=== PATIENT | female | born 1985 | race Caucasian/White ===

== ENCOUNTER 2019-02-12 13:21 | Inpatient (IN) ==
[2019-02-12] MEDS ORDERED: OXYTOCIN 30 UNITS/500 ML BAG IV PRN ×2 (13:42→17:27)
[2019-02-12] MEDS ORDERED: LACTATED RINGER'S 1,000 ML IV PRN ×3 (13:42→16:18)
[2019-02-12] MEDS: LACTATED RINGER'S 1,000 ML IV SCH ×2 (14:08→16:46)
[2019-02-12 14:14] LABS: Hematocrit (blood only) 38.8 % (37-47); Hemoglobin 13.1 g/dL (12.0-16.0); Mean Corpuscular Volume 84.5 fL (80-100); Mean Platelet Volume 10.5 fL (7.4-10.4); Platelet Count 200 K/uL (130-400); RDW Coefficient of Variation 14.1 % (11.5-14.5); RDW Standard Deviation 42.4 fL (36.4-46.3); Red Blood Count 4.59 M/uL (4.2-5.4); White Blood Count 13.16 K/uL (4.8-10.8)
[2019-02-12] MEDS ORDERED: ePHEDrine sulfate 50 MG/ML AMP ONE (14:18)
[2019-02-12] MEDS ORDERED: fentaNYL citrate 100 MCG/2 ML VIAL ONE (14:18)
[2019-02-12] MEDS ORDERED: BUPIVACAINE 0.25% 30 ML VIAL ONE (14:18)
[2019-02-12] MEDS ORDERED: fentaNYL 2MCG/ML ROPIV 1.25MG/ML 100 ML BAG EPI ONE (14:19)
--- NOTE | 2019-02-12 14:19 | History & Physical Report ---
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 No recent bite or scratch by animal Allergies Allergy/AdvReac Type Severity Reaction Status Date / Time amoxicillin Allergy Hives Verified 02/12/19 13:35 Penicillins Allergy Hives Verified 02/12/19 13:36 Patient History Medical History No known health problems [place] teeth removed age 20 Family History Mother Melanoma OB History 05/2017 in [place] [employer] History No h/o STD's , no chlamydia/ GC or HSV Review of Systems All systems reviewed & are unremarkable except as noted in HPI & below Physical Exam Vital Signs (Past 24 Hours): Last Vital Signs Pulse 84 02/12/19 13:31 BP 132/62 02/12/19 13:31 Constitutional: well nourished, + acute distress (with contractions) and well groomed Genitourinary: no vaginal lesions, no adnexal mass normal external appea ang Speculum/Bimanual Exam: normal bimanual exam Manual OB Exam: + cervical dilation (6-7) 6 cm, + cervical effacement 80% and + station (vertex, bulging bag) -1 OB Exam Monitor Tracing: + category I
[2019-02-12 14:20] LABS: Mean Corpuscular Hgb Conc 33.8 g/dL (32-36)
[2019-02-12] MEDS ORDERED: NALBUPHINE HCL INJ 10 MG/ML AMP IV PRN ×2 (15:15→16:18)
[2019-02-12] MEDS ORDERED: NALOXONE HCL 1 MG in SODIUM CHLORIDE 0.9% 1000ML 1,000 ML IV PRN ×2 (15:15→16:18)
[2019-02-12] MEDS ORDERED: ONDANSETRON INJ 2 MG/ML 2 ML VIAL IV PRN ×2 (15:15→16:18)
[2019-02-12] MEDS ORDERED: NALOXONE HCL 0.4 MG/1 ML VIAL/CARP IV PRN ×2 (15:15→16:18)
[2019-02-12] MEDS ORDERED: PROMETHAZINE HCL 6.25 MG in SODIUM CHLORIDE 0.9% 50 ML IV PRN ×2 (15:15→16:18)
[2019-02-12] MEDS ORDERED: DiphenhydrAMINE HCL 50 MG/ML VIAL IV PRN ×2 (15:15→16:18)
[2019-02-12] MEDS ORDERED: ePHEDrine sulfate 50 MG/ML AMP IV PRN ×2 (15:15→16:18)
[2019-02-12] MEDS ORDERED: fentaNYL 2MCG/ML ROPIV 1.25MG/ML 100 ML BAG EPI PRN ×2 (15:15→16:18)
--- NOTE | 2019-02-12 16:12 | Obstetrical Progress Note ---
Date of Service February 12, 2019 Subjective Patient is reevaluated She is comfortable, received epidural for pain FHR categ I Offered her AROM but she likes to wait her to come back Continue to monitor closey Physical Exam Vital Signs (Past 24 Hours): Last Vital Signs Temp 36.8 C 02/12/19 15:06 Pulse 82 02/12/19 15:59 Resp 20 02/12/19 15:59 BP 119/75 02/12/19 15:59 Pulse Ox 100 02/12/19 15:57
--- NOTE | 2019-02-12 16:19 | Anesthesiology Consultation ---
Date of Service February 12, 2019 Assessment & Plan Chart Review Chart Review: Patient NOT seen in Pre Admission Testing and Acceptable Risk for Labor Epidural Consults Requested none ASA ASA2 Proposed Anesthesia Anesthesia Type: Labor Epidural Risk / Benefits Reviewed With: PT / POA / Parent / Guardian, Accepts Plan and Informed Consent Obtained History Height/Weight Height: 5 ft 2 in Weight: 65.317 kg Allergies Allergy/AdvReac Type Severity Reaction Status Date / Time amoxicillin Allergy Hives Verified 02/12/19 13:35 Penicillins Allergy Hives Verified 02/12/19 13:36 Medications Home Medications Medication Instructions Recorded Confirmed Last Taken PNV cmb#95-ferrous fumarate-FA 1 tab PO DAILY 02/12/19 02/12/19 02/11/19 21:00 [] Active Medications Generic Name Dose Route Start Last Admin Trade Name Freq PRN Reason Stop Dose Admin Lactated Ringer's 1,000 mls @ 150 mls/hr 02/12/19 13:45 02/12/19 14:08 Lr IV 02/14/19 13:44 999 mls/hr .[id number] JULIAN Administration Past Medical History Medical History No known health problems [place] teeth removed age 20 Past Family History Family History Mother Melanoma Social History Smoking Status: Never smoker Hx Alcohol Use: No Hx Substance Use: No Physical Exam Vital Signs Last Vital Signs Temp 36.8 C 02/12/19 15:06 Pulse 82 02/12/19 15:59 Resp 20 02/12/19 15:59 BP 119/75 02/12/19 15:59 Pulse Ox 100 02/12/19 15:57 ENMT Mouth: no TMJ abnormality Thyromental Distance: > or= 3.5 Finger Breadths Mallampati Class: II Neck normal visual inspection Respiratory normal respiratory effort Cardiovascular Rate/Rhythm: regular rate and regular rhythm Neurologic moves all extremities Psychiatric Orientation: alert Testing Laboratory Results 02/12/19 13:58
[2019-02-12] MEDS ORDERED: DIPHTHERIA/TETANUS/PERTUSSIS 0.5 ML SYR/VIAL IM ONE (17:27)
[2019-02-12] MEDS ORDERED: HYDROCORTISONE ACETATE 25 MG SUPP PR PRN (17:27)
[2019-02-12] MEDS ORDERED: ACETAMINOPHEN 325 MG TAB PO PRN (17:27)
[2019-02-12] MEDS ORDERED: BENZOCAINE 20% AER SPR 82.5 GM CAN EXT PRN (17:27)
[2019-02-12] MEDS ORDERED: SUPERCREAM 0.870% 15 GM JAR EXT PRN (17:27)
[2019-02-12] MEDS ORDERED: BISACODYL 10 MG SUPP PR PRN (17:27)
--- NOTE | 2019-02-12 17:58 | Anesthesia Procedure Note ---
Date of Service February 12, 2019 Anesthesia Post Epidural Note Vital Signs Vital Signs: Temp Pulse Resp BP Pulse Ox 36.8 C 70 20 138/67 83 L 02/12/19 15:06 02/12/19 17:28 02/12/19 15:59 02/12/19 17:28 02/12/19 17:13 Pain Intensity Bilateral Abdomen: Pain Intensity: 1 Notes Mental Status: alert / awake / arousable Nausea / Vomiting: adequately controlled Pain: adequately controlled Airway Patency, RR, SpO2: stable & adequate BP & HR: stable & adequate Hydration State: stable & adequate Neuraxial Anesthesia: was administered and sensory block is resolving Anesthetic Complications: no major complications apparent and Pt Satisfied with anesthetic care Epidural: Removed without complications
[2019-02-12] MEDS: IBUPROFEN 600 MG TAB PO PRN (20:38)
[2019-02-12] MEDS: DOCUSATE SODIUM 100 MG CAP PO SCH (21:30)
--- NOTE | 2019-02-13 03:38 | Delivery Summary ---
DATE OF OPERATION: 02/12/2019 TIME OF DELIVERY OF BABY: 1716. TIME OF DELIVERY OF PLACENTA: 1722. DETAILS OF DELIVERY: The patient was found to be fully dilated and desired to push. She started pushing with contractions. heart rate had been category I before starting to push. heart rate started having decelerations in between contractions but with a good variability in between and acceleration with scalp stimulation most of the time. After 30 minutes of pushing, heart rate had another deceleration to 80s without recovery. Decision was made to apply a vacuum on the head. The head was at +3 station and bladder was empty and vagina had enough relaxation/ space to apply the vacuum. [place] Vacuum was applied 1 cm anterior to the posterior fontanelle. Then while the patient was pushing, the vacuum was used to apply 1 pull. The head was descended but it pooped off. heart rate went up to 130s and then a decision was made not to apply vacuum again. With the patient pushing for over the next few contractions, head was delivered and then there was a nuchal cord around the neck x1 which was reduced and the shoulders were delivered with minimal traction. Baby was handed off to the mother, where her mouth and nose were suctioned. Baby was vigorously crying and moving. Cord was clamped x2 and cut. It was a 3-vessel cord. Then cord blood was collected in a bag for donation per patient's request. Vagina and perineum were checked for lacerations. There were no lacerations found. The vagina and perineum were intact . The placenta was found to be in the vagina, delivered spontaneously intact and complete. Uterus was explored, found to be empty. Lower segment was cleared of all clots and debris. EBL was 150 mL. Mom and baby tolerated the procedure well. Sponge, lap, needle count were correct x2. Baby was a viable male infant, Apgars 8/9, weight is 3613 gr. No complications happened and I was present during whole procedure. I attest to the content of the Intraoperative Record and any orders documented therein. Any exceptions are noted below. MTDD
[2019-02-13] MEDS: IBUPROFEN 600 MG TAB PO PRN ×5 (03:54→23:17)
[2019-02-13 08:15] LABS: Hematocrit (blood only) 36.9 % (37-47); Hemoglobin 12.6 g/dL (12.0-16.0); Mean Corpuscular Hgb Conc 34.1 g/dL (32-36); Mean Corpuscular Volume 84.2 fL (80-100); Mean Platelet Volume 10.4 fL (7.4-10.4); Platelet Count 185 K/uL (130-400); RDW Coefficient of Variation 14.3 % (11.5-14.5); RDW Standard Deviation 44.1 fL (36.4-46.3); Red Blood Count 4.38 M/uL (4.2-5.4); White Blood Count 12.74 K/uL (4.8-10.8)
[2019-02-13] MEDS: DOCUSATE SODIUM 100 MG CAP PO SCH ×2 (08:22→19:53)
[2019-02-13] MEDS: FERROUS SULFATE 325 MG TAB PO SCH (08:22)
[2019-02-13] MEDS: PRENATAL VITAMIN 1 TAB PO SCH (08:22)
--- NOTE | 2019-02-13 10:14 | Obstetrical Progress Note ---
Date of Service February 13, 2019 Physical Exam Vital Signs (Past 24 Hours): Last Vital Signs Temp 37 C 02/13/19 07:30 Pulse 62 02/13/19 07:30 Resp 18 02/13/19 07:30 BP 120/80 02/13/19 07:30 Pulse Ox 97 02/13/19 03:55 Constitutional: WD/WN, vitals as above Gastrointestinal (Abdomen): abdomen soft and non-tender fundus firm no edema neg Judie's for d/c in AM
[2019-02-13] MEDS ORDERED: BISACODYL 5 MG TABEC PO SCH (20:00)
[2019-02-14] MEDS: IBUPROFEN 600 MG TAB PO PRN ×2 (06:08→12:06)
[2019-02-14 07:17] LABS: Hematocrit (blood only) 39.4 % (37-47); Hemoglobin 13.7 g/dL (12.0-16.0)
--- NOTE | 2019-02-14 07:54 | Obstetrical Progress Note ---
Date of Service February 14, 2019 Subjective doing well planning for discharge today ambulating and tolerating diet well minimal bleeding Physical Exam Vital Signs (Past 24 Hours): Last Vital Signs Temp 36.6 C 02/13/19 23:10 Pulse 67 02/13/19 23:10 Resp 20 02/13/19 23:10 BP 121/81 02/13/19 23:10 Pulse Ox 97 02/13/19 23:10 Constitutional: WD/WN, vitals as above comfortable abdomen soft and non- tender fundus firm no edema negative Judie's discharged home Results & Data Laboratory Results Laboratory Results - last 48 hr 02/12/19 02/13/19 02/14/19 13:58 08:01 06:41 WBC 13.16 H 12.74 H RBC 4.59 4.38 Hgb 13.1 12.6 13.7 Hct 38.8 36.9 L 39.4 MCV 84.5 84.2 MCH 28.5 28.8 MCHC 33.8 34.1 RDW Std Deviation 42.4 44.1 RDW Coeff of Oriana 14.1 14.3 Plt Count 200 185 MPV 10.5 H 10.4
[2019-02-14] MEDS: FERROUS SULFATE 325 MG TAB PO SCH (08:04)
[2019-02-14] MEDS: DOCUSATE SODIUM 100 MG CAP PO SCH (08:04)
[2019-02-14] MEDS: PRENATAL VITAMIN 1 TAB PO SCH ×2 (08:04→09:49)
[2019-02-14] MEDS ORDERED: MEASLES, MUMPS & RUBELLA VIRUS VIAL SQ ONE (09:55)
--- NOTE | 2019-02-17 23:16 | Discharge Summary ---
DETAILS OF ADMISSION: The patient is a 33-year-old G2, P1-0-0-1 at 40 weeks of gestation who presented to labor and delivery with contractions and in active labor and desired epidural. She received epidural and she progressed to full dilatation. Membranes were ruptured and she wanted to push. While pushing the heart rate was having decelerations with recovery in between contractions and good variability. After 30 minutes of pushing, heart rate had deceleration to the 80s without recovery and decision was made to apply a vacuum on the head to assist in delivery after verbal consent was obtained. Head was at +3 station. Her bladder was empty and there was an enough vaginal relaxation to allow vacuum placement. The vacuum was placed at the vertex 1 cm anterior to the posterior fontanelle and with the patient pushing applied a gentle pull and the head descended but the vacuum popped off. After that, heart rate recovered to 130s with good variability and decision was made not to apply vacuum anymore and the patient pushed by herself and delivered the head over an intact perineum. There was a nuchal cord around the neck x1 which was reduced and baby was handed to the mother and Apgars were 8/9. Baby weighed 3613 g. No complications happened and I was present during whole procedure. On postop day #1, the patient was doing well. Vital signs stable, afebrile. Physical exam was unremarkable. Abdomen was soft, nontender. Fundus was firm. No edema and bleeding was minimal. On postop day #2, the patient was doing well. Vital signs stable, afebrile. Physical exam was unremarkable and patient was discharged home on 02/14/[address] Orta. Discharge instructions were given when to call, prescriptions were written. The patient is to be seen in the office. All questions were answered. MAYLIN
== END 2019-02-14 13:30 | disposition home or self-care (01) | DRG 807 ==
LOC: OPB 13:21 → 4S1 13:27 → 4S2 19:24